=== PATIENT | male | born 1955 | race African-American/Black ===

== ENCOUNTER → 2016-07-23 | Outpatient (CLI) | payer OTHER ==
[~2016-07-23] MED LIST: ALPHAGAN P 15 M15 ML OU; CELEBREX 1100 MG/CAP PO; CIPRO 500MG TA500 MG PO; COSOPT 2%-0.5%10 ML OP; DUREZOL 5 ML5 ML OP; FERROUS SULFAT324 MG PO; FLONASE NASAL S16 GM NS; FORADIL AERO0.012 MG IH; LIPITOR 40MG TA40 MG PO; MILLIPRED5 MG PO; OMNICEF 300MG300 MG PO; PLAVIX 75MG TAB75 MG PO; POLYMYXIN B/TRIMETH OU; PROAIR HFA0.09 MG/AC IH; SPIRIVA HANDIH18 MCG IH; STIOLTO RESPIMAT4 GM IH; TRAVATAN OP; TRAVATAN Z 2.52.5 ML OD; ZITHROMAX 250M250 MG PO
== END ==
LOC: COL.RAD 12:36
DX: M79.89 Other specified soft tissue disorders (principal); M79.661 Pain in right lower leg

== ENCOUNTER 2016-11-04 20:29 | Emergency (ER) | payer OTHER ==
[~2016-11-04] VITALS: Ht 172.7 cm; Wt 63.2 kg
[~2016-11-04 20:29] MED LIST changes: -ALPHAGAN P 15 M15 ML OU; -CELEBREX 1100 MG/CAP PO; -CIPRO 500MG TA500 MG PO; -FLONASE NASAL S16 GM NS; -LIPITOR 40MG TA40 MG PO; -PLAVIX 75MG TAB75 MG PO; -PROAIR HFA0.09 MG/AC IH; -STIOLTO RESPIMAT4 GM IH; -TRAVATAN Z 2.52.5 ML OD
[2016-11-04 21:23] LABS: BASO % 0.1 % (0.0-2.0); EOS # 0.2 (0.0-0.7); EOS % 2.1 % (0-4.0); GRAN # 5.4 (1.4-6.5); GRAN % 76.9 % (42.2-75.2); LYMPH # 0.7 (1.2-3.4); LYMPH % 10.3 % (20.0-51.0); MEAN CELL VOLUME 89 fl (80.0-100.0); MEAN CORPUSCULAR HGB CONC 33 g/dl (33.0-37.0); MEAN PLATELET VOLUME 11.6 fl (7.4-10.4); MONO # 0.7 (0.1-0.6); MONO % 10.3 % (1.7-9.3); PLATELET COUNT 144 K/mm3 (130-400); RED BLOOD COUNT 3.78 M/mm3 (4.20-5.60); REDCELL DISTRIBUTION WIDTH-CV 14.9 % (11.5-14.5)
[2016-11-04 21:25] LABS: HEMATOCRIT 33.8 % (42.0-52.0); HEMOGLOBIN 11.3 g/dl (13.5-18.0); MEAN CORPUSCULAR HEMOGLOBIN 30 pg (27.0-31.0)
[2016-11-04 21:28] LABS: ADJUSTED CALCIUM 8.8 mg/dL (8.4-10.2); ALBUMIN 3.7 gm/dL (3.5-5.0); BILIRUBIN,TOTAL 0.7 mg/dL (0.0-1.0); CALCIUM 8.6 mg/dL (8.4-10.2); CREATININE, serum 0.96 mg/dL (0.66-1.25); POTASSIUM 3.5 mmol/L (3.4-5.0); TOTAL PROTEIN 7.6 gm/dL (6.4-8.2)
[2016-11-04] MEDS ORDERED: LIPITOR 40MG TA40 MG PO ×2 (21:39→21:46)
[2016-11-04] MEDS ORDERED: CELEBREX 1100 MG/CAP PO (21:40)
[2016-11-04 21:41] LABS: HYALINE CAST >12 /lpf; PH 6 (5-8); SQUAMOUS EPITHELIAL 0-2 /hpf; URINE APPEARANCE Cloudy; URINE BACTERIA Moderate /hpf; URINE BILIRUBIN Negative (NEGATIVE); URINE BLOOD 3+ (NEGATIVE); URINE COLOR Yellow; URINE GLUCOSE Negative (NEGATIVE); URINE KETONE Negative (NEGATIVE); URINE RBC >50 /hpf; URINE UROBILINOGEN Negative (NEGATIVE); URINE WBC >50 /hpf
[2016-11-04] MEDS ORDERED: TRAVATAN Z 2.52.5 ML OD (21:44)
[2016-11-04] MEDS ORDERED: PROAIR HFA0.09 MG/AC IH (21:44)
[2016-11-04] MEDS ORDERED: ALPHAGAN P 15 M15 ML OU (21:44)
[2016-11-04] MEDS ORDERED: STIOLTO RESPIMAT4 GM IH (21:45)
[2016-11-04] MEDS ORDERED: FLONASE NASAL S16 GM NS (21:45)
[2016-11-04] MEDS ORDERED: PLAVIX 75MG TAB75 MG PO (21:46)
[2016-11-04] MEDS ORDERED: CIPRO 500MG TA500 MG PO (22:24)
[2016-11-04 22:42] VITALS: BP 118/64; PULSE 92; TEMP 98.1
== END 2016-11-04 22:44 | disposition home or self-care (01) ==
LOC: COL.ER 20:29
PROVIDERS: Emergency Medicine
DX: N39.0 Urinary tract infection, site not specified (principal); J44.9 Chronic obstructive pulmonary disease, unspecified
CPT/HCPCS: J0696; J7030

== ENCOUNTER → 2021-04-14 | Outpatient (CLI) | payer MEDICARE, OTHER ==
[2021-04-14] VITALS (15 sets, daily range): BP systolic 135–181; BP diastolic 74–97; PULSE 70–87; TEMP 97.7
[~2021-04-14] VITALS: Ht 172.7 cm; Wt 63.1 kg
[~2021-04-14] MED LIST changes: +ALPHAGAN P 15 M15 ML OU; +ASPIRIN E.C. 8181 MG PO; +CELEBREX 1100 MG/CAP PO; +CIPRO 500MG TA500 MG PO; +COSOPT 2%-0.5%10 ML OU; +DIAMOX SEQUELS500 M1 PO; +FLONASE NASAL S16 GM NS; +FORTESTA10 MG/0.5 TP; +LIPITOR 40MG TA40 MG PO; +LIPITOR 80MG80 MG PO; +LOTEMAX 5 ML 5 M5 ML OD; +NATURAL IRON65 MG PO; +PLAVIX 75MG TAB75 MG PO; +PROAIR HFA0.09 MG/AC IH; +PROVENTIL0.09 MG/A1 IH; +STIOLTO RESPIMAT4 GM IH; +TAB-A-VITE MUL1 EAC1 PO; +TRAVATAN Z 2.52.5 ML OD; +VITAMIN A10k PO; +VITAMIN C500 MG PO
--- NOTE | 2021-04-14 09:25 | NUR ---
pt to ct per ambulation. Pt in supine postion on table. Monitors applied O2 on at 2l/nc
--- NOTE | 2021-04-14 09:45 | NUR ---
Dr Aldridge in to talk with pt. Dr Aldridge talked with Dr Ponce and biopsy is changed to spinal mass biopsy instead. The lung biopsy was too difficult to get into. Pt agrees to changing to the spinal mass biopsy.
--- NOTE | 2021-04-14 09:51 | NUR ---
Pt signed consent for the biopsy of the cervical spinal mass. Pt then positioned in prone position. Moniters removed and then reapplied. This is the reason there are no vital signs at 0950
--- NOTE | 2021-04-14 09:55 | NUR ---
Pt requests Oxygen be increased due to laying in prone position.
--- NOTE | 2021-04-14 10:15 | NUR ---
Specimen obtained by Dr Aldridge and placed in formalin. Specimen labeled.
== END ==
LOC: COL.RAD 08:01
DX: R91.8 Other nonspecific abnormal finding of lung field (principal); M89.9 Disorder of bone, unspecified
CPT/HCPCS: 32108

== ENCOUNTER → 2022-01-10 | Outpatient (CLI) | payer MEDICARE, OTHER ==
--- NOTE | 2022-01-07 11:51 | NUR ---
LMOM WITH INSTUCTIONS AND CALL BACK NUMBER
[~2022-01-10] MED LIST changes: +LASIX 40MG TABL40 MG PO; +PREDNISONE20 MG PO; +VITAMIN B11000 MCG/M IM
--- NOTE | 2022-01-10 13:55 | NUR ---
pt is taking plavix took his dose this am at 0418. Talked with Dr Carlos wants to have pt rescheduled. Pt is taking plavix due to having a recent stent placed in october 2021, Talked with pt in regards to talking with vascular surgeon and asking if pt needs to be bridged with a different anticoagulant. Pt rescheduled for wednesday 01/17. Procedure for today was canceled.
== END ==
LOC: COL.RAD 13:02
DX: J90 Pleural effusion, not elsewhere classified (principal)

== ENCOUNTER → 2022-01-17 | Outpatient (CLI) | payer MEDICARE, OTHER ==
[~2022-01-17] VITALS: Ht 172.7 cm; Wt 62.7 kg
[~2022-01-17] MED LIST changes: -LASIX 40MG TABL40 MG PO; -PREDNISONE20 MG PO; -VITAMIN B11000 MCG/M IM
[2022-01-17 07:44] VITALS: BP 158/78; PULSE 90; TEMP 98
[2022-01-17 08:55] VITALS: BP 120/73; PULSE 83
[2022-01-17 19:14] LABS: BODY FLUID PH (AMS) 8 (())
== END ==
LOC: COL.RAD 07:12
PROVIDERS: Physician Assistant
DX: J90 Pleural effusion, not elsewhere classified (principal); Z85.9 Personal history of malignant neoplasm, unspecified
CPT/HCPCS: 19804

== ENCOUNTER → 2022-02-03 | Outpatient (CLI) | payer MEDICARE, OTHER ==
[~2022-02-03] MED LIST changes: +LASIX 40MG TABL40 MG PO; +PREDNISONE20 MG PO; +VITAMIN B11000 MCG/M IM
== END ==
LOC: COL.VAS 10:07
DX: I08.2 Rheumatic disorders of both aortic and tricuspid valves (principal); C34.90 Malignant neoplasm of unspecified part of unspecified bronchus or lung

== ENCOUNTER 2022-02-07 06:47 | Day surgery (SDC) | payer MEDICARE, OTHER ==
[~2022-02-07] VITALS: Ht 172.7 cm; Wt 60.4 kg
[~2022-02-07 06:47] MED LIST changes: -LASIX 40MG TABL40 MG PO; -PREDNISONE20 MG PO; -VITAMIN B11000 MCG/M IM
[2022-02-07 07:30] VITALS: BP 98/58; PULSE 66; TEMP 98.3
[2022-02-07] MEDS ORDERED: PREDNISONE20 MG PO (10:28)
[2022-02-07] MEDS ORDERED: VITAMIN B11000 MCG/M IM (10:28)
[2022-02-07] MEDS ORDERED: LASIX 40MG TABL40 MG PO (10:29)
== END 2022-02-07 09:00 | disposition home or self-care (01) ==
LOC: SDCO 06:47
DX: J91.8 Pleural effusion in other conditions classified elsewhere (principal); C34.90 Malignant neoplasm of unspecified part of unspecified bronchus or lung; J96.11 Chronic respiratory failure with hypoxia; J44.9 Chronic obstructive pulmonary disease, unspecified; G47.34 Idiopathic sleep related nonobstructive alveolar hypoventilation; Z87.891 Personal history of nicotine dependence; Z79.82 Long term (current) use of aspirin; Z79.52 Long term (current) use of systemic steroids; Z79.899 Other long term (current) drug therapy

== ENCOUNTER 2022-06-12 15:46 | Inpatient (IN) | payer MEDICARE, OTHER ==
[2022-06-12] VITALS (158 sets, daily range): O2SAT 84–100
[~2022-06-12] VITALS: Ht 165.1 cm; Wt 54.0 kg
[~2022-06-12 15:46] MED LIST changes: +LASIX 40MG TABL40 MG PO; +PREDNISONE20 MG PO; +VITAMIN B11000 MCG/M IM
[2022-06-12 16:27] LABS: BASO % 0.3 % (0.0-2.0); EOS % 0.2 % (0.0-4.0); GRAN # 9.1 K/mm3 (1.4-6.5); GRAN % 81.9 % (42.2-75.2); LYMPH # 0.9 K/mm3 (1.2-3.4); LYMPH % 8.3 % (20.0-51.0); MEAN CELL VOLUME 103 fl (80.0-100.0); MEAN CORPUSCULAR HGB CONC 29 g/dl (33.0-37.0); MEAN PLATELET VOLUME 9.6 fl (7.4-10.4); MONO % 8.9 % (1.7-9.3); PLATELET COUNT 265 K/mm3 (130-400); RED BLOOD COUNT 2.87 M/mm3 (4.20-5.60); REDCELL DISTRIBUTION WIDTH-CV 15.9 % (11.5-14.5)
[2022-06-12 16:30] LABS: HEMATOCRIT 29.6 % (42.0-52.0); HEMOGLOBIN 8.6 g/dl (13.5-18.0); MEAN CORPUSCULAR HEMOGLOBIN 30 pg (27-31)
[2022-06-12 16:44] LABS: ALANINE AMINOTRANSFERASE 32 U/L (0-55); ALBUMIN 2.9 gm/dL (3.4-4.8); ALKALINE PHOSPHATASE 65 U/L (40-150); ANION GAP 13 mmol/L (7-16); AST,SGOT 40 U/L (5-34); BILIRUBIN,TOTAL 0.3 mg/dL (0.2-1.2); BLOOD UREA NITROGEN 12 mg/dL (8-26); CARBON DIOXIDE 35 mmol/L (23-31); CHLORIDE 98 mmol/L (98-107); CREATININE, serum 1.02 mg/dL (0.72-1.25); GLUCOSE 222 mg/dL (70-99); SODIUM 146 mmol/L (136-145); TOTAL PROTEIN 7.2 gm/dL (6.2-8.1)
[2022-06-12 17:02] LABS: INR 1.1 (0.8-3.0); PROTHROMBIN TIME 12.4 SECONDS (9.7-12.8)
[2022-06-12 17:04] LABS: TROPONIN-I < 0.010 ng/mL (0.00-0.033); TSH w REFLEX 82.331 uIU/mL (0.350-4.940)
[2022-06-12 17:05] LABS: PARTIAL THROMBOPLASTIN TIME 35.9 SECONDS (26.0-37.0)
[2022-06-12 17:18] LABS: ARTERIAL BLD GAS O2 SATURATION 88.9 % (92-100); ARTERIAL BLD GAS TCO2 CT 38.6; ARTERIAL BLOOD GAS HCO3 35.4 meq/L (22-26); ARTERIAL BLOOD GAS PO2 66.5 mmHg (80-100); ARTERIAL BLOOD GAS pH 7.15 (7.35-7.45)
[2022-06-12 17:19] LABS: ARTERIAL BLOOD GAS PCO2 104.8 mmHg (35-45)
[2022-06-12] MEDS ORDERED: SYNTHROID0.112 MG/T PO (18:12)
[2022-06-12] MEDS ORDERED: K-TAB20 PO (18:13)
[2022-06-12] MEDS ORDERED: LASIX 20MG TABL20 MG PO (18:13)
[2022-06-12] MEDS ORDERED: PEPCID 20MG TAB20 MG PO (18:15)
[2022-06-12] MEDS ORDERED: ROCKLATAN 0.022.5 ML OP (18:15)
[2022-06-12] MEDS ORDERED: SEROQUEL 2525 MG/TAB PO (18:16)
[2022-06-12] MEDS ORDERED: SENNA8.8 MG/5 M PO (18:17)
[2022-06-12] MEDS ORDERED: FORTESTA10 MG/0.5 TP (18:18)
[2022-06-12] MEDS ORDERED: LIPITOR 80MG80 MG PO (18:21)
[2022-06-12] MEDS ORDERED: TRUSOPT OCUMETE10 ML OU (18:22)
[2022-06-12] MEDS ORDERED: PLAVIX 75MG TAB75 MG PO (20:00)
--- NOTE | 2022-06-12 20:54 | NUR ---
RECEIVED HAND OFF REPORT FROM [facility]. PT ARRIVED TO UNIT VIA ED BED ACCOMPANIED BY RN ON FULL ROLL INSPECTOR. PT A&O x4 AND RESTING. PT WITH RT CHEST TUBE OPEN TO AIR. PT ON 3L OM. PT WITH DIMINISHED RT UPPER LUNG SONDS, RT LOWER LUNG SOUNDS CLEAR AND ALL LT LUNG SOUNDS DIMINISHED. PT WITH STAGE 2 PRESSURE ULCER QUARTER SIZED ON LOWER RT COCCYX. RLE +3 EDEMA, LLE +2 EDEMA AND BL HANDS TRACE EDEMA. PT RT EYE OPAQUE WITH BLINDNESS, PUPIL NON RESPONSIVE. PT HARD OF HEARING, WITH HEARING BEST IN LT EAR. ALL OF PT BELONGINGS TAKEN HOME BY CARLEY. PT ORIENTED TO ROOM, URINAL AT BEDSIDE CALL LIGHT AT BEDSIDE, BED ALARM ON.
[2022-06-13] VITALS (988 sets, daily range): BP systolic 101–140; BP diastolic 56–72; PULSE 79–92; TEMP 98.5–98.8; O2SAT 75–100
--- NOTE | 2022-06-13 04:00 | NUR ---
CHEST TUBE DRESSING WITH BLOOD DRAINAGE, BUT NO MORE SATURATED THEN NOTED ON PT ARRIVAL TO UNIT. PT ON BLOOD THINNERS AT THIS TIME.
[2022-06-13 04:41] LABS: ARTERIAL BLD GAS O2 SATURATION 94.6 % (92-100); ARTERIAL BLD GAS TCO2 CT 34.8; ARTERIAL BLOOD GAS BASE EXCESS 7.1 (-2-2); ARTERIAL BLOOD GAS HCO3 33.1 meq/L (22-26); ARTERIAL BLOOD GAS PCO2 54.9 mmHg (35-45); ARTERIAL BLOOD GAS PO2 75.5 mmHg (80-100)
[2022-06-13 05:26] LABS: GRAN # 6.7 K/mm3 (1.4-6.5); GRAN % 89.6 % (42.2-75.2); LYMPH # 0.6 K/mm3 (1.2-3.4); LYMPH % 8.6 % (20.0-51.0); MEAN CELL VOLUME 99 fl (80.0-100.0); MEAN CORPUSCULAR HGB CONC 31 g/dl (33.0-37.0); MEAN PLATELET VOLUME 10.1 fl (7.4-10.4); MONO # 0.1 K/mm3 (0.1-0.6); MONO % 1.5 % (1.7-9.3); PLATELET COUNT 217 K/mm3 (130-400); RED BLOOD COUNT 2.72 M/mm3 (4.20-5.60); REDCELL DISTRIBUTION WIDTH-CV 16.5 % (11.5-14.5)
[2022-06-13 05:29] LABS: HEMATOCRIT 26.8 % (42.0-52.0); HEMOGLOBIN 8.3 g/dl (13.5-18.0); MEAN CORPUSCULAR HEMOGLOBIN 31 pg (27-31)
[2022-06-13 05:50] LABS: CALCIUM 9.9 mg/dL (8.4-10.2); CREATININE, serum 0.82 mg/dL (0.72-1.25); MAGNESIUM 1.8 mg/dL (1.6-2.6); POTASSIUM 4.9 mmol/L (3.5-4.5)
--- NOTE | 2022-06-13 08:00 | NUR ---
Patient sitting on the edge of the bed after voiding. Assessment completed. Denies any shortness of breath or pain at this time. Chest tube site assessed and is in place and secure. VS stable; call light left within reach.
[2022-06-13] MEDS ORDERED: LOTEMAX 5 ML 5 M5 ML OU (10:20)
[2022-06-13] MEDS ORDERED: PULMICORT0.5 MG/2 M IH (10:23)
[2022-06-13] MEDS ORDERED: YUPELRI175 MCG/3 IH (10:32)
[2022-06-13] MEDS ORDERED: ALBUTEROL0.83 MG/ML IH (10:34)
[2022-06-13] MEDS ORDERED: VENTOLIN0.09 MG IH (10:38)
[2022-06-13] MEDS ORDERED: TYLENOL 8 HR PO (10:40)
[2022-06-13] MEDS ORDERED: FOLIC ACID 11 MG/TA1 PO (10:42)
--- NOTE | 2022-06-13 16:43 | NUR ---
leather worker met with patient and spouse ( Peg #[phone]) to discuss discharge planning. Patient lives with spouse and has is currently utilizing [facility] for fpc. Patient's primary care is [facility] and that is where patient obtains his home medications. Peg states that patient has home oxygen through [facility] and that patient has advance directives name Peg as his durable power of associate attorney for health care. Worker encouraged spouse to bring documents to the hospital. Patient plans to return home upon discharge.
--- NOTE | 2022-06-13 17:51 | NUR ---
Resting in bed watching TV; no concerns at this time.
[2022-06-14] VITALS (1327 sets, daily range): BP systolic 116–134; BP diastolic 63–80; PULSE 84–121; TEMP 97.8–98.5; O2SAT 77–100
--- NOTE | 2022-06-14 10:20 | NUR ---
Dr. Hobbs at bedside to pull out right sided chest tube. Tube removed without issue. VS stable. Will monitor for any respiratory concerns.
--- NOTE | 2022-06-14 13:30 | NUR ---
Discussed chest xray results with Dr. Hobbs. Will plan to keep patient in the hospital overnight. Dr. Mckeon also at bedside to discuss chest xray results with patient and family.
--- NOTE | 2022-06-14 19:54 | NUR ---
RECEIVED REPORT FROM DAY SHIFT NURSE. PT IS RESTING IN BED AND MOVING IN BED INDEPENDENTLY. PT'S VITALS ARE STABLE AT THIS TIME.
--- NOTE | 2022-06-14 22:25 | NUR ---
PT TOOK LIPITOR BUT REFUSED OTHER MEDICATIONS THAT WERE DUE AT 2100. EDUCATED PT ON THOSE MEDICATIONS THAT WERE REFUSED WELL THE ONE GIVEN. RT NOTIFIED NURSE THAT THE PT'S SUBCUTANEOUS EMPHYSEMA WAS PRETTY LARGE UP TO THE BASE OF SKULL TO THE DIAPHRAM/RIB AREA ON THE RIGHT SIDE. RT NOTIFIED HOSPITIALIST. NURSE CALLED RADIOLOGY TO MAKE SURE THE PT'S CHEST XRAY GETS READ TO SEE WHAT THE RESULTS WERE. DURING THE ASSESSMENT NURSE PALPATED CREPITUS/SUBCUTANEOUS EMPHYSEMA ALL AROUND ON THE PT'S RIGHT SIDE FROM THE BASE OF THE SKULL ALL DOWN AROUND THE ARMPIT AREA TO THE PT'S SPINE DOWN TO THE LOWER BACK AND OVER TO THE MIDDLE ABDOMEN AREA AND TO THE MID STERNEM AREA ALL ON THE RIGHT SIDE. PT ZOIE WANDA PALPATING THE AREAS WITH SUBCUTANEOUS EMPHYSEMA. PT IS SLEEPING AT THIS TIME. TO
[2022-06-15] VITALS (1421 sets, daily range): BP systolic 106–147; BP diastolic 67–77; PULSE 82–106; TEMP 97.8–98.6; O2SAT 55–100
--- NOTE | 2022-06-15 06:39 | NUR ---
PT HAD AN UNEVENTFUL NIGHT. PT'S VITALS HAVE BEEN STABLE THROUGHOUT THE NIGHT. THE SUBCUCANTEOUS EMPHYSEMA SPREAD A LITTLE MORE OVER THE CHEST TOWARDS THE LEFT SIDE BUT THE REST IS THE SAME. WILL GIVE REPORT TO DAY SHIFT NURSE.
--- NOTE | 2022-06-15 08:02 | NUR ---
Sitting on the edge of the bed to eat. Denies any complaints at this time. Right sided dressing from chest tube assessed. Edges peeling up and was re-inforced. Crepitus is felt along the whole right side from subcutaneous emphysema. 02 saturations remain stable on 4L. Call light left within reach.
--- NOTE | 2022-06-15 14:41 | NUR ---
Singed nebulizer order faxed faxed to [facility]. SW contacted agency to notify of order. Per Karma at [facility], she believes that they do have machines in stock.
--- NOTE | 2022-06-15 19:39 | NUR ---
RECEIVED REPORT FROM DAY SHIFT NURSE. PT IS RESTING IN BED AND VITALS ARE STABLE AT THIS TIME.
[2022-06-16] VITALS (444 sets, daily range): BP systolic 116–121; BP diastolic 67–82; PULSE 84–101; TEMP 97.4–98.3; O2SAT 66–100
[2022-06-16 04:55] LABS: BASO % 0.1 % (0.0-2.0); EOS # 0.2 K/mm3 (0.0-0.7); EOS % 2.4 % (0.0-4.0); GRAN # 5.5 K/mm3 (1.4-6.5); GRAN % 70.8 % (42.2-75.2); LYMPH # 1.4 K/mm3 (1.2-3.4); LYMPH % 18.3 % (20.0-51.0); MEAN CORPUSCULAR HGB CONC 29 g/dl (33.0-37.0); MEAN PLATELET VOLUME 9.5 fl (7.4-10.4); MONO # 0.6 K/mm3 (0.1-0.6); MONO % 8.1 % (1.7-9.3); PLATELET COUNT 244 K/mm3 (130-400); RED BLOOD COUNT 2.73 M/mm3 (4.20-5.60); REDCELL DISTRIBUTION WIDTH-CV 16.8 % (11.5-14.5)
[2022-06-16 04:57] LABS: HEMATOCRIT 28.3 % (42.0-52.0); HEMOGLOBIN 8.2 g/dl (13.5-18.0); MEAN CELL VOLUME 104 fl (80.0-100.0); MEAN CORPUSCULAR HEMOGLOBIN 30 pg (27-31)
[2022-06-16 05:08] LABS: CALCIUM 9.6 mg/dL (8.4-10.2); CREATININE, serum 0.76 mg/dL (0.72-1.25); POTASSIUM 4.1 mmol/L (3.5-4.5)
--- NOTE | 2022-06-16 06:53 | NUR ---
PT HAS HAD AN UNEVENTFUL NIGHT. PT REFUSED LOVENOX. NURSE GAVE EDUCATION ON THE MEDICATION. PT'S VITALS HAVE BEEN STABLE THROUGHOUT THE NIGHT. PT'S CREPITIS HAS NOT CHANGED OVER NIGHT. WILL GIVE REPORT TO DAY SHIFT NURSE.
--- NOTE | 2022-06-16 09:15 | NUR ---
Patient to possibly discharge later today pending CT results.Peg at bedside. Informed them that the patients order for a nebulizer machine was faxed to [facility] and all they would need to do it pick it up. Peg verbalizes her understanding. Patient provided the MCR.IM form. Education provided and patient and Peg verbalize their understanding and agreement with discharge plan. Patient requests that his sign. Signed original placed in the patients chart and copy provided back to the patient. Discharge plan: Home w/spouse support
--- NOTE | 2022-06-16 13:35 | NUR ---
PT DISCHARGE INSTRUCTIONS DISCUSSED WITH PT AND HIS WHO VERBALIZED UNDERSTANDING, ALL QUESTIONS ANSWERED. NO FURTHER NEEDS EXPRESSED AT THIS TIME. PT PICC REMOVED BY DAKOTAH COLLADO PER PROTOCOL. DRESSING TO RYAN IS CDI, COVERED WITH GAUZE AND TEGADERM. PT ESCORTED OUT VIA WC ON HOME O2.
[2022-06-21] VITALS (262 sets, daily range): O2SAT 90–100
== END 2022-06-16 13:35 | disposition home or self-care (01) | DRG 189 ==
LOC: COL.ER 15:46 → ICU 19:47
PROVIDERS: Emergency Medicine; Internal Medicine; Student in an Organized Health Care Education/Training Program; ADMIT Student in an Organized Health Care Education/Training Program
PROC: 0W9930Z Drainage of Right Pleural Cavity with Drainage Device, Percutaneous Approach (ICD-10-PCS; principal; 2022-06-12)
PROC: 5A09457 Assistance with Respiratory Ventilation, 24-96 Consecutive Hours, Continuous Positive Airway Pressure (ICD-10-PCS; 2022-06-12)
PROC: 02HV33Z Insertion of Infusion Device into Superior Vena Cava, Percutaneous Approach (ICD-10-PCS; 2022-06-13)
DX: J96.01 Acute respiratory failure with hypoxia (principal); J44.1 Chronic obstructive pulmonary disease with (acute) exacerbation; J95.812 Postprocedural air leak; J96.02 Acute respiratory failure with hypercapnia; E03.9 Hypothyroidism, unspecified; I25.10 Atherosclerotic heart disease of native coronary artery without angina pectoris; I44.0 Atrioventricular block, first degree; T68.XXXA Hypothermia, initial encounter; H40.9 Unspecified glaucoma; T81.82XA Emphysema (subcutaneous) resulting from a procedure, initial encounter; Y83.8 Other surgical procedures as the cause of abnormal reaction of the patient, or of later complication, without mention of misadventure at the time of the procedure; I65.23 Occlusion and stenosis of bilateral carotid arteries; L89.90 Pressure ulcer of unspecified site, unspecified stage; Z20.822 Contact with and (suspected) exposure to COVID-19; Z99.81 Dependence on supplemental oxygen; Z86.73 Personal history of transient ischemic attack (TIA), and cerebral infarction without residual deficits; Z88.1 Allergy status to other antibiotic agents; Z85.118 Personal history of other malignant neoplasm of bronchus and lung; Z88.0 Allergy status to penicillin; Z79.890 Hormone replacement therapy; Z79.82 Long term (current) use of aspirin; Z87.891 Personal history of nicotine dependence; Z92.21 Personal history of antineoplastic chemotherapy; Z92.25 Personal history of immunosuppression therapy; Z23 Encounter for immunization
CPT/HCPCS: C1751; J0696; J1650; J2920; J2930; J7512